=== PATIENT | male | born 1980 | race Caucasian/White ===

== ENCOUNTER 2019-01-06 08:06 | Day surgery (SDC) | payer OTHER, SELFPAY ==
--- NOTE | 2019-01-06 06:11 | PCM.HP.STD ---
Problem List (1) Personal history of colonic polyps Status: Acute History of Present Illness Date of Admission: 01/06/19 The patient is a 38 year old M who presents today for follow-up. He has a personal history of a tubular adenoma the colon identified 2009. He has a family history of colon cancer.. The September 2010 colonoscopy involved a rectal polypectomy of the tubular adenoma. The patient denies bright red blood per rectum or melena. No abdominal pain. No change of weight. His health otherwise has been stable. Upon further questioning him today he states that he did bleed from his previous polypectomy and required urgent treatment the following day. He states the following day is when he met me and I was able to assist him out of that problem. Past Medical History Allergies No Known Allergies Allergy (Verified 12/31/18 14:53) Home Medications: Ambulatory Orders Medication Instructions Recorded NK 12/31/18 Surgical History: no surgical history Smoking Status: Current every day smoker Review of Systems HEENT: Denies: Difficulty Swallowing Cardiovascular: Denies: Chest Pain Respiratory: Denies: Cough Gastrointestinal: Denies: Abdominal Pain, Melena Endocrine: Denies: Change in Body Habitus VTE Information - Inpt Only VTE Present on Admission: No - Physical Exam General: Alert, Oriented x3, Cooperative, No apparent distress Oral: Moist Mucosa Neck: Supple Lungs: Clear to auscultation Cardiovascular: Regular rate, Regular Rhythm Abdomen: Bowel Sounds Present, Soft, Non Tender, Non-Distended Extremities: No Calf Tenderness Psych/Mental Status: Normal Affect Assessment/Plan All Active Problems Personal history of colonic polyps (Acute) Based upon his personal history of colon polyps and family history of colon cancer he would be a candidate for surveillance colonoscopy every 5 years. I discussed with him technique, benefits, risks, alternatives. He has had an opportunity to ask and have questions answered. He presents via our open access program today. We will proceed as noted. Adin Bingham M.D., F.A.C.S.
[2019-01-06 08:28] VITALS: BP 150/105; PULSE 121; RESP 16; TEMP 36.9; O2SAT 100; BMI 24.9
--- NOTE | 2019-01-06 09:30 | COLBX_PTH ---
PATIENT: MIKAEL MEYERS LOC: EN U#:[id number] AGE/SX: 38/M ROOM: RE01/06/[address]: Dr. Adin Bingham MD : 1980 BED: DIS: 01/06/2019 SPEC #: [id number] RECD: 01/06/19 12:37 STATUS: ANDIE NEAL #: [id number] RAMYA: 01/06/19 09:[address]: Adin Bingham DEPT: SURGICAL PATHOLOGY RECD BY: Carlos Chua ENTERED: 01/06/19 12:37 SP TYPE: COLON BX OTHR DR: Dr. Matthew Campa MD Tissues: Sigmoid colon biopsy Procedures: Surgery Specimen Level IV HEADER OPERATION: Colonoscopy - open access (MAC) PRE-OP DIAGNOSIS: Personal history colon polyps TISSUE SUBMITTED: Polyp proximal sigmoid MICROSCOPIC DIAGNOSIS Proximal sigmoid polyp, biopsy: Tubular adenoma. Fragments of mucoid material. SJ:rachell 01/07/19 MICROSCOPIC DESCRIPTION Slides are reviewed. GROSS DESCRIPTION Received in fixative is one container labeled with the patient's name and designated polyp proximal sigmoid. The specimen consists of a piece of powers-pink polyp measuring 0.5 x 0.5 x 0.3 cm. Also present in the container are multiple fragments of powers soft tissue that in aggregate measure 0.5 x 0.5 x 0.1 cm. The entire specimen is submitted in one cassette. / SJ:rachell 01/06/19 TC:1 CPT: 82309
[2019-01-06 09:42] VITALS: BP 119/93; BP 150/105; PULSE 97; RESP 18; TEMP 36.6; O2SAT 98
--- NOTE | 2019-01-06 09:43 | OP.ENDO_ITS ---
01/06/2019 Matthew Campa MD Re : Colonoscopy procedure for Phil Abdul Dear Dr. Campa This procedure was performed on Sunday, January 06, 2019. My impressions and recommendations are as follows: Impressions : - One 9 mm polyp in the proximal sigmoid colon, removed with a hot snare. Resected and retrieved. Clip was placed. - Tortuous colon. - The examination was otherwise normal. Recommendations : - Discharge patient to home. - Resume previous diet. - Continue present medications. - Repeat colonoscopy in 5 years for surveillance. - Telephone my office for pathology results in 1 week. My findings are described in the full procedure note, which is enclosed. If I can be of further assistance, please feel free to contact me at Doctor phone number(s): Work: . Sincerely, Adin Bingham MD 01/06/2019 9:43:31 AM This report has been signed electronically.
[2019-01-06 09:45] VITALS: BP 113/93; BP 150/105; PULSE 91; RESP 18; O2SAT 98
[2019-01-06 09:50] VITALS: BP 114/83; BP 150/105; PULSE 87; RESP 18; O2SAT 100
[2019-01-06 09:55] VITALS: BP 123/90; BP 150/105; PULSE 83; RESP 18; TEMP 36.7; O2SAT 99
[2019-01-06 10:15] VITALS: BP 150/105
== END 2019-01-06 10:16 | disposition home or self-care (01) ==
LOC: EN 08:07 → AC 08:09
PROVIDERS: Family Provider Family Medicine; PCP Family Medicine; Referring Provider Surgery; Visit Provider Surgery
PROC: 0DJD8ZZ Inspection of Lower Intestinal Tract, Via Natural or Artificial Opening Endoscopic (ICD-10-PCS; CPT 45378; principal; 2019-01-06 09:25)
DX: D12.5 Benign neoplasm of sigmoid colon (principal); I10 Essential (primary) hypertension; F17.200 Nicotine dependence, unspecified, uncomplicated; Z80.0 Family history of malignant neoplasm of digestive organs
CPT/HCPCS: 45380; 88305; J7120

== ENCOUNTER 2023-11-14 10:17 | Emergency (ER) | payer BC, SELFPAY ==
[2023-11-14 10:17] VITALS: BP 141/86; PULSE 135; RESP 18; TEMP 35.8; O2SAT 100; BMI 26.5
--- NOTE | 2023-11-14 10:58 | CT_ITS ---
HISTORY: tail bone pain, concern for abscess. TECHNIQUE: Helically acquired images were obtained of the abdomen and pelvis after the intravenous administration of 100mL Isovue-300. A radiation dose optimization technique was used for this scan. 432 images. COMPARISON: None. FINDINGS: LOWER CHEST: Lung bases clear. BOWEL: Bowel nondilated. Appendectomy. No focal pericolonic inflammatory change observed. PERITONEUM: No significant ascites. LIVER: Fatty infiltration. GALLBLADDER/BILIARY TREE: Gallbladder present. SPLEEN/PANCREAS: Homogeneous and nonenlarged. KIDNEYS/ADRENAL GLANDS: Unremarkable. VESSELS: No abdominal aortic aneurysm. Very mild atherosclerosis. PELVIC ORGANS: Unremarkable. ABDOMINAL WALL: 2.5 x 2.8 cm rim-enhancing cystic lesion with surrounding stranding below the coccyx between the gluteal muscles. BONES: Degenerative endplate changes with osteophytes and intervertebral disc space narrowing of L5-S1. CT/Abdomen/Pelvis W IV Cont ONLY IMPRESSION: 2.8 cm pilonidal abscess. Hepatic steatosis. Electronically Signed: Aidee Padilla MD at 12:01 EST ,
--- NOTE | 2023-11-14 11:11 | EX.ED.DYSGE1 ---
HPI History of Present Illness Chief Complaint: Other, Pain/Inj Informant: patient Narrative Narrative: Patient is a 43-year-old male with history of sciatica (recently treated with a course of steroids and improved) presenting with worsening tailbone pain. States is been mild for the past month but flared up from time to time. Has had similar symptoms like this over the years however it has been significantly worse over the past 5 days. He states it is much worse when he sits. He does sit a lot at work either driving or just sitting. Patient of the pain, fever or chills. Notes it feels different than his sciatica. Denies any bowel or bladder incontinence. Denies any fever or chills. Did try Epson bath last night which gave some temporary relief. Denies any drainage to the area or skin changes that he is aware of. It is painful to touch directly. Denies any trauma. Denies any other complaints at this time. PFSH PFSH Home Medications atorvastatin 20 mg tablet 20 mg PO DAILY 11/14/23 [History Last Taken 11/13/23] ciprofloxacin HCl 500 mg tablet (Cipro) 500 mg PO BID #14 tabs 11/14/23 [Rx Last Taken Unknown] lisinopril 30 mg tablet 30 mg PO DAILY 11/14/23 [History Last Taken 11/13/23] metronidazole 500 mg tablet 500 mg PO Q8H 7 days #21 tabs 11/14/23 [Rx Last Taken Unknown] oxycodone-acetaminophen 5 mg-325 mg tablet (Percocet) 1 tab PO Q8H PRN pain 3 days #12 tabs 11/14/23 [Rx Last Taken Unknown] tadalafil 2.5 mg tablet 2.5 mg PO DAILY 11/14/23 [History Last Taken 11/13/23] Allergy/AdvReac Type Severity Reaction Status Date / Time No Known Allergies Allergy Verified 11/14/23 10:17 Social History Smoking Status: Current every day smoker tobacco type: cigarettes ROS ROS ED Constitutional Constitutional ED: Denies chills or fever(s) Respiratory/Chest Respiratory/Chest: Denies cough Gastrointestinal Gastrointestinal: Denies abdominal pain, constipation, diarrhea, nausea or vomiting Genitourinary Genitourinary ED: Denies dysuria or hematuria Musculoskeletal Musculoskeletal: Reports back pain; Denies arthralgias or myalgias Integumentary Denies rash Neurologic Neurologic: Denies headache(s) Psychiatric Psychiatric: Denies anxiety EXAM Physical Exam Const Vital Signs: 11/14/23 10:17 11/14/23 10:17 11/14/23 11:34 Temperature 96.5 F L Temperature Source Temporal Pulse Rate 135 H 100 Respiratory Rate 18 14 Respiratory Effort Normal Non-Labored Respiratory Pattern Normal Blood Pressure 141/86 H 127/75 H Blood Pressure Mean 104 92 Pulse Ox 100 95 Oxygen Delivery Method Room Air Room Air 11/14/23 13:34 Temperature Temperature Source Pulse Rate Respiratory Rate 18 Respiratory Effort Respiratory Pattern Blood Pressure Blood Pressure Mean Pulse Ox Oxygen Delivery Method Positive well nourished and well developed General Appearance ED: well developed and NAD HEENT Reports moist mucous membranes Neck supple Chest Wall inspection of chest normal Resp normal respiratory effort and clear to auscultation bilaterally Cardio regular rhythm Rate: tachycardic GI normal to inspection, nondistended, normoactive bowel sounds, non-tender and non-distended Back/Spine Back/Spine Narrative: No midline tenderness of thoracic and lumbar spine, normal range of motion of the spine. No significant paraspinal tenderness. Extremity normal to inspection Extremity Narrative: ? 5 strength with plantar dorsiflexion as well as flexion of the hips bilaterally. Does not reproduce the pain. Neuro oriented x3 Sensorium / Orientation: alert Motor Exam: strength 5/5 throughout; Negative for general weakness Psych mental status grossly normal Skin Skin Narrative: No rashes or lesions appreciated however patient has reproducible tenderness of the superior and right gluteal cleft with some questionable induration to the area. Do not appreciate any significant erythema or drainage. MDM MDM MDM Narrative Medical decision making narrative: Evaluated for 5 days of worsening buttocks pain. Concern for pilonidal cyst versus deep space infection as he is tachycardic upon arrival. No obvious well-defined abscess/fluctuance noted on physical exam. Will obtain CT of the pelvis to further evaluation as well as labs. Is given IV fluids and Toradol. Declined stronger pain medicine at this time. States when he is laying down the pain is not as severe. Patient is a leukocytosis of 15.4. CMP and lactate largely normal. Mildly elevated inflammatory markers (ESR and CRP). CT of the abdomen and pelvis shows a 2.8 cm pilonidal abscess as well as hepatic steatosis, however I am concerned this is a perianal abscess. Surgical consult obtained and patient is evaluated by Dr. Tavarez. Dose of IV Zosyn. Decision made to perform bedside I&D by surgery. Culture sent. Packing is placed by surgery and per surgical report, there is a significant mount of purulent drainage expressed. Patient tolerated this well. Per recommendation from general surgery will place patient on Cipro and Flagyl, patient will remove packing in 2 days and follow-up in the office in 1 week. Will be given a short course of opioid pain medication. Patient comfortable this plan of care. Given return precautions. He verbalizes agreement or stands plan. Discharged home in improved and stable condition. Patient did drive here so is not given any opioids at time of discharge. Lab Data Attestation: I reviewed the patient's lab results. Labs: Laboratory Results - last 24 hr 11/14/23 11:11 WBC 15.4 H RBC 4.60 Hgb 14.6 Hct 42.3 MCV 92.0 MCH 31.7 MCHC 34.5 RDW Std Deviation 42.0 RDW Coeff of [place] 12.6 Plt Count 237 MPV 9.1 Immature Gran % (Auto) 0.600 Neut % (Auto) 79.2 H Lymph % (Auto) 11.7 L [place] % (Auto) 7.9 Eos % (Auto) 0.2 Baso % (Auto) 0.4 Absolute Neuts (auto) 12.2 H Absolute Lymphs (auto) 1.80 Nucleated RBC % 0 ESR 40 H Sodium 133 L Potassium 3.9 Chloride 100 Carbon Dioxide 27.0 Anion Gap 6 BUN 10 Creatinine 0.91 Estim Creat Clear Calc 117.07 Est GFR (MDRD) Af Amer 116 Est GFR (MDRD) Non-Af 96 BUN/Creatinine Ratio 10.9 Glucose 111 H Lactic Acid 1.0 Calcium 9.2 C-React Prot Ext Range 16.10 H Radiography Diagnostic Testing: Clinical Impression(s) from Imaging Studies Abdomen/Pelvis CT 11/14/23 10:58 IMPRESSION: 2.8 cm pilonidal abscess. Hepatic steatosis. Electronically Signed: Aidee Padilla MD at 12:01 EST , Management Discussion w/another healthcare provider: Deputy Editor In Chief Discharge Plan Triage Chief Complaint: Other, Pain/Inj ED Provider: Cecily Rausch Dx/Rx/DC Orders Clinical Impression: Perianal abscess, Acute buttock pain, Leukocytosis Instructions: ED ABSCESS Maryanne-Anal IandD Prescriptions: New ciprofloxacin HCl [Cipro] 500 mg tablet 500 mg PO BID Qty: 14 0RF metronidazole 500 mg tablet 500 mg PO Q8H 7 Days Qty: 21 0RF oxycodone-acetaminophen [Percocet] 5-325 mg tablet 1 tab PO Q8H PRN (Reason: pain) 3 Days Qty: 12 0RF No Action tadalafil 2.5 mg tablet 2.5 mg PO DAILY lisinopril 30 mg tablet 30 mg PO DAILY atorvastatin 20 mg tablet 20 mg PO DAILY Primary Care Provider: Matthew Campa Referrals: Zane Eli MD [Med Staff - Active Staff] - 1 Week Matthew Campa MD [Primary Care Provider] - Activity Restrictions/Additional Instructions: Call general surgery office, Dr. Eli, later today or tomorrow to arrange for follow-up/wound check in 1 week. Take all antibiotics as prescribed. Please remove the packing in 48 hours as we discussed if it has not fallen out on its own. Disposition Disposition: Home, Self Care
[2023-11-14 11:23] LABS: Erythrocyte Sedimentation Rate 40 mm/hr (0-20)
[2023-11-14 11:25] LABS: Absolute Neutrophil Count 12.2 X10^3/uL (2.0-7.7); Basophil# 0.06 X10^3/uL; Basophil% 0.4 % (0-1); Eosinophil# 0.03 X10^3/uL; Eosinophils% 0.2 % (0-5); Hematocrit 42.3 % (40-54); Hemoglobin 14.6 g/dL (13.0-16.5); Lymphocyte % 11.7 % (19-41); Mean Corp Hgb Conc 34.5 g/dL (32-36); Mean Corpuscular Hgb 31.7 pg (27.0-32.0); Mean Platelet Vol. 9.1 fl (6.2-12.0); Monocyte# 1.22 X10^3/uL; Monocyte% 7.9 % (0-10); NRBC Flagged by Analyzer 0 % (0-5); Neutrophil % 79.2 % (47-70); Platelet Count 237 K/mm3 (150-450); RBC Distribution Width CV 12.6 % (11.6-14.6); White Blood Count 15.4 K/mm3 (4.4-11.0)
[2023-11-14 11:34] VITALS: BP 127/75; PULSE 100; RESP 14; O2SAT 95
--- OUTSIDE RECORDS SUMMARY | 2023-11-14 11:34 | XMS RPT_ITS | CCD ---
Author Name Unknown Address [address] [place] [address] Organization [facility] Care Team Providers Care Cloud Infrastructure Architect Name Role Phone Hudson Diaz MD Primary Care Provider HUDSON DIAZ Primary Care Unavailable LIZ RAY Referring Unavailable HUDSON DIAZ Primary Care Unavailable LIZ RAY Referring Unavailable LIZ RAY Attending Unavailable HUDSON DIAZ Primary Care Unavailable HUDSON DIAZ Primary Care Unavailable JENNA RANDOLPH Referring Unavailable LIZ RAY Referring Unavailable HUDSON DIAZ Primary Care Unavailable HUDSON DIAZ Primary Care Unavailable JENNA RANDOLPH Attending Unavailable LIZ RAY Referring Unavailable LIZ RAY Attending Unavailable HUDSON DIAZ Primary Care Unavailable Medications Current Medications Medication Drug Class(es) Dates Sig (Normalized) Sig (Original) busPIRone hydrochloride 15 mg oral tablet (3 sources) Start: 12-04-2021 End: 01-25-2023 take 0.5 tablet by mouth twice daily, then take 1 tablet by mouth twice daily busPIRone (BUSPAR) 15 mg tablet Indications: Anxiety, generalized Take 1/2 a tab by mouth twice a day for 2 weeks than one twice a day. 60 tablet 5 12/04/2021 01/25/2023 Discontinued Completed/Discontinued Medications Medication Drug Class(es) Dates Sig (Normalized) Sig (Original) atorvastatin 20 mg oral tablet (3 sources) HMG-CoA Reductase Inhibitor Start: 01-29-2023 End: 08-16-2023 take 1 tablet by mouth once daily at bedtime for hyperlipidemia atorvastatin (LIPITOR) 20 mg tablet Take 1 tablet by mouth daily at bedtime. For cholesterol. 30 tablet 5 01/29/2023 08/16/2023 Discontinued Problems Active Problems Problem Classification Problem Date Documented Da te Episodic/Chronic Anxiety disorders (9 sources) Generalized anxiety disorder; Translations: [Generalized anxiety disorder] Onset: 09-21-2015 09-21-2015 Chronic Disorders of lipid metabolism (9 sources) Mixed hyperlipidemia; Translations: [Mixed hyperlipidemia] Onset: 09-21-2015 09-21-2015 Chronic Essential hypertension (10 sources) Essential hypertension; Translations: [Essential (primary) hypertension] Onset: 12-05-2015 12-05-2015 Chronic Other gastrointestinal disorders (7 sources) Irritable bowel syndrome; Translations: [Irritable bowel syndrome without diarrhea] Onset: 05-18-2011 09-21-2015 Chronic Other lower respiratory disease (1 source) Snoring; Translations: [Snoring] Episodic Other male genital disorders (6 sources) Secondary erectile dysfunction; Translations: [Male erectile dysfunction, unspecified] Onset: 01-25-2023 Chronic Other male genital disorders (1 source) Male erectile dysfunction, unspecified; Translations: [ED (erectile dysfunction) of organic origin] Onset: 01-25-2023 Chronic Residual codes; unclassified (1 source) Hypersomnia; Translations: [Hypersomnia, unspecified] Chronic Residual codes; unclassified (1 source) Hypersomnia, unspecified; Translations: [Hypersomnia] Onset: 01-25-2023 Chronic Substance-related disorders (7 sources) Smoker; Translations: [Nicotine dependence, unspecified, uncomplicated] Onset: 07-22-2020 07-22-2020 Chronic Unclassified (1 source) Acute midline low back pain without sciatica; Translations: [Acute midline low back pain without sciatica] Onset: 10-25-2023 Past or Other Problems Problem Classification Problem Date Documented Da te Episodic/Chronic Diabetes mellitus without complication (9 sources) High hemoglobin A1c level; Translations: [Other abnormal glucose] Onset: 1 05-05-2021 Episodic Gastrointestinal hemorrhage (7 sources) Hemorrhage of rectum and anus; Translations: [Hemorrhage of anus and rectum] Onset: 7 10-31-2007 Episodic Other and unspecified benign neoplasm (7 sources) Benign neoplasm of colon; Translations: [Benign neoplasm of colon, unspecified] Onset: 7 09-21-2015 Episodic Other and unspecified benign neoplasm (7 sources) History of polyp of colon; Translations: [Personal history of colonic polyps] Onset: 0 09-21-2015 Episodic Other and unspecified benign neoplasm (7 sources) Benign neoplasm of rectum and anal canal; Translations: [Benign neoplasm of rectum] Onset: 0 09-21-2015 Episodic Other lower respiratory disease (1 source) Snoring; Translations: [Snoring] Onset: 3 Episodic Other nervous system disorders (7 sources) Knee reflex finding; Translations: [Abnormal reflex] Onset: 7 02-01-2017 Episodic Other screening for suspected conditions (not mental disorders or infectious disease) (10 sources) Other specified abnormal findings of blood chemistry; Translations: [Other abnormal blood chemistry] Onset: 1 04-12-2021 Episodic Other skin disorders (7 sources) Cystic acne; Translations: [Acne vulgaris] Onset: 0 07-22-2020 Episodic Residual codes; unclassified (7 sources) Family history of malignant neoplasm of gastrointestinal tract; Translations: [Family history of malignant neoplasm of digestive organs] Onset: 7 09-21-2015 Episodic Residual codes; unclassified (7 sources) Current drinker; Translations: [Other problems related to lifestyle] Onset: 1 12-04-2021 Episodic Results Test Name Value Interpretation Reference Range Facil ity Vital Signs Date Time Vital Sign Value Performing Clinician Jaya campos 01-25-2023 09:26-0400 Diastolic blood pressure 83 mm[Hg] Liz Ray PA-C Work Phone: [facility] 01-25-2023 09:26-0400 Heart rate 95 /min Liz Ray PA-C Work Phone: [facility] 01-25-2023 09:26-0400 Systolic blood pressure 116 mm[Hg] Liz Ray PA-C Work Phone: [facility] 01-25-2023 08:29-0400 Body height 187 cm Liz Ray PA-C Work Phone: [facility] 01-25-2023 08:29-0400 Body weight 95.25 kg Liz Ray PA-C Work Phone: [facility] 01-25-2023 08:29-0400 Respiratory rate 16 /min Liz Ray PA-C Work Phone: [facility] 01-25-2023 08:29-0400 SaO2% (BldA) [Mass fraction] 99 % Liz Ray PA-C Work Phone: [facility] Encounters Encounter Date Encounter Type Care Provider Facility Start: 10-25-2023 End: 10-26-2023 ambulatory LIZ RAY Facility:[facility] Start: 04-05-2023 End: 04-05-2023 ambulatory LIZ RAY Facility:[facility] Start: 02-22-2023 End: 02-22-2023 ambulatory HUDSON DIAZ Facility:[facility] Start: 02-22-2023 End: 02-22-2023 Subsequent hospital visit by physician [facility] Work Phone: Radiology Procedures Date Procedure Procedure Detail Performing Clinician Start: 02-22-2023 Us abdominal real ti me w/image limited Liz Ray PA-C Work Phone: Start: 01-25-2023 Lipid 1996 panel - S jack or Plasma [facility] 1 Work Phone: Start: 01-06-2019 Colonoscopy Hudson cody MD Work Phone: Plan of Treatment Date Care Activity Detail Author Start: 07-22-2030 Urine microalbumin profile [facility] Start: 01-26-2028 Lipid 1996 panel - S jack or Plasma Lipid Screening [facility] Start: 01-26-2028 LIPID SCREEN LIPID SCREEN [facility] Start: 12-04-2026 LIPID SCREEN LIPID SCREEN [facility] Start: 04-05-2024 Annual PCP Team Compressor Operator Portable sparkle Disease Visit Annual PCP Team Chronic Disease Visit [facility] Start: 01-26-2024 ANNUAL PCP TEAM ICE HANDLER SPARKLE DISEASE VISIT ANNUAL PCP TEAM CHRONIC DISEASE VISIT [facility] Start: 01-26-2024 COVID-19 VACCINE (#1) COVID-19 VACCI NE (#1) [facility] Immunizations Immunization Date Immunization Notes Care Provider Fa cility 07-22-2020 tetanus toxoid, redu pradeep diphtheria toxoid, and acellular pertussis vaccine, adsorbed Hudson Diaz MD Work Phone: [facility] 10-25-2016 influenza virus vaccine, unspecified formulation Us 1 Work Phone: [facility] 05-12-2006 diphtheria and tetan us toxoids, adsorbed for pediatric use Hudson Diaz MD Work Phone: [facility] Work Phone: Payers Date Payer Category Payer Unknown [employer] PPO OOS [id number] 2021-Present [phone] [address] [place] [address] PPO [id number] 2021 Unknown [employer] PPO OOS [id number] 2021-Present [phone] [address] [place] [address] PPO [id number] 2021 Unknown [id number] Social History Date Type Detail Facility Start: 09-21-2015 End: 12-04-2021 Tobacco smoking status GAIS Occasional tobacco smoker [facility] Work Phone: History of tobacco use Cigarette Smoker [facility] Work Phone: Start: 09-21-2015 End: 01-25-2023 Cigarettes smoked current (pack per day) - Reported 0.5 [facility] Work Phone: Start: 09-21-2015 End: 01-25-2023 Tobacco use and exposure Former smokeless tobacco user [facility] Work Phone: Start: 12-04-2021 End: 01-25-2023 Alcohol intake Current drinker of alcohol (finding) [facility] Start: 12-04-2021 End: 01-25-2023 Tobacco Comment 1/2-1 ppd [facility] Start: 1980 Sex Assigned At Not on file [facility] Start: 01-25-2023 Tobacco smoking stat us [facility] Smokes tobacco daily [facility] Work Phone: Start: 01-25-2023 Tobacco use panel [facility] Work Phone: Adult Depression Screening Assessment 0 [facility] Work Phone: Clinical Notes 02-01-2017 to 10-25-2023 Eloise Myrick RDMS - 02/22/2023 10:30 AM EDTTelephone Encounter - Lauryn Ponce LPN - 02/13/2023 10:56 AM EDTTelephone Encounter - Liz Ray PA-C - 01/29/2023 12:03 PM EDT Note Date & Type Note Facility 10-25-2023 Note HNO ID: [id number] Author: Jerri Patrick RT(R) Service: Radiology Author Type: Technologist Type: Progress Notes Filed: 10/25/2023 9:57 AM Note Text: Radiology Service Progress Note PATIENT NAME: Phil Abdul DATE OF SERVICE: October 25, 2023 TIME: 9:44 AM PATIENT IDENTITY VERIFICATION COMPLETED USING TWO (2) IDENTIFIERS: Name and Date of confirmed by patient verbally. FALL SCREENING: Has the patient had 2 falls in the last year or 1 fall with injury or currently using an Ambulatory Assistive Device (Walker, Cane, Wheelchair, Crutches, etc.)? No PATIENT GENDER DATA: Male PATIENT RELEVANT IMPLANT DATA REVIEWED: Yes RADIOLOGY DEPARTMENT: General X-ray: Exam(s) Completed: Spine X-Ray(s): Lumbar AP / LAT / L5-S1 PERIPHERAL IV DATA: Not applicable SIGNED BY: RT Shaji(R) October 25, 2023 9:44 AM [facility] 10-25-2023 Note HNO ID: [id number] Author: Jenna Randolph APRN.MATERIAL MOVER Service: ? Author Type: Nurse Practitioner Type: Progress Notes Filed: 10/25/2023 9:32 AM Note Text: Chief Complaint No chief complaint on file. HPI Phil Abdul is a 43 year old male who presents here today for Above Complaints.. Patient presents for routine follow up. Patient reports about 5 weeks ago he began having sciatic pain. Patient reports he is going to a chiropractor but this has not helped. Patient reports use of ibuprofen for 4 days but this did not help either. Past medical history, appointments, medications, allergies reviewed. 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 Bingham, repeat 5 yrs COLSC FLEXIBLE W/CONTROL BLEEDING ANY METHOD 11/03/07 COLSC FLX W/RMVL OF TUMOR POLYP LESION SNARE TQ 10/31/07 COLSC FLX W/RMVL OF TUMOR POLYP LESION SNARE TQ 09/22/10 LAPAROSCOPIC APPENDECTOMY 05-29-13 LAPAROSCOPY ENTEROLYSIS SEPARATE PROCEDURE 05-29-13 Family History FAMILY HISTORY Problem Relation Age of Onset Colon Cancer Father 39 Psychiatry Mother anxiety and depression Hypertension Mother Cervical Cancer Paternal Grandfather Patient Allergies ALLERGIES No Active Allergies Current Medications Current Outpatient Medications on File Prior to Visit Medication Sig atorvastatin (LIPITOR) 20 mg tablet Take 1 tablet by mouth daily at bedtime. For cholesterol. Tadalafil (CIALIS) 2.5 mg tab Take 1 tablet by mouth once daily. lisinopril (ZESTRIL) 30 mg tablet Take 1 tablet by mouth once daily. No current facility-administered medications on file prior to visit. Social History Social History Tobacco Use Smoking status: Every Day Packs/day: 1.00 Years: 8.00 Additional pack years: 0.00 Total pack years: 8.00 Types: Cigarettes Smokeless tobacco: Former Tobacco comments: 11/12- ppd Vaping Use Vaping Use: Never used Substance Use Topics Alcohol use: Yes Alcohol/week: 21.0 standard drinks of alcohol Types: 21 Cans of Beer (12oz) per week Drug use: No Review of Symptoms REVIEW OF SYSTEMS SEE HPI EXAM: BP 130/74 Pulse 106 Resp 14 Wt 91.6 kg (202 lb) BMI 26.20 kg/m? General Appearance: Well appearing, alert, in no acute distress, well-hydrated, well nourished.. Back:reflexes are 2+ and symmetric, no evidence of scoliosis, Limited flexion/extension of back, pain with flexion. Lungs: Lungs clear to auscultation. No wheezing, rhonchi, rales.. Heart: RRR without murmur, gallop, or rubs. No ectopy. Health Maintenance List BP Controlled (<130/80) Never done Influenza Vaccine(1) due on 07/12/2023 Colorectal Cancer Screening due on 01/06/2024 Hepatitis B Vaccine(1 of 3 - 3-dose series) due on 01/26/2024 Covid-19 Vaccine(1) due on 01/26/2024 Pneumococcal Vaccine(1 of 2 - PCV) due on 01/26/2024 Annual PCP Team Chronic Disease Visit due on 04/05/2024 Lipid Screening due on 01/26/2028 DTaP,Tdap,Td Vaccine(3 - Td or Tdap) due on 07/22/2030 Depression Assessment Completed Hepatitis C Screening Completed HPV Vaccine Aged Out HIV Screening Discontinued ASSESSMENT/PLAN: 1. Acute midline low back pain without sciatica - ICD9: 724.2, ICD10: M54.50 (primary diagnosis) - PREDNISONE 10 MG TABLET - XR LUMBAR GENERAL 3V AP/LAT/L5-S1 2. Essential hypertension - ICD9: 401.9, ICD10: I10 - Controlled - Continue current medications - Recommend home blood pressure monitoring, to bring results to next visit - Encouraged sodium restriction, DASH or Mediterranean diet - Recommend regular aerobic exercise - Discussed need for and benefit of weight loss. BMI 26.20 kg/(m2) 3. Mixed hyperlipidemia - ICD9: 272.2, ICD10: E78.2 - Control undetermined, due for labs - Continue current medications - Counseled on healthy diet and regular exercise - Discussed need for and benefit of weight loss. BMI 26.20 kg/(m2) 4. ED (erectile dysfunction) of organic origin - ICD9: 607.84, ICD10: N52.9 -Continue arnoldo Randolph APRN.[facility] 04-05-2023 Note HNO ID: [id number] Author: Liz Ray PA-C Service: ? Author Type: Physician Fireproof Door Maker Type: Progress Notes Filed: 04/05/2023 10:26 AM Note Text: Chief Complaint Patient presents with: Recheck HPI Phil Abdul is a 42 year old male who presents here today for recheck. Patient was seen apprx 2 months ago. We started celexa to see if would help with anxiety symptoms. He stopped this about 1 week ago. Did not feel like it was helping and at this point, not sure he wants to try any other medication or increase dose of celexa. We started daily cialis to help with ED which he has noted good benefit from. He elected to wait until 2023 to do the sleep study. Will let us know if needs reordered at that time. Patient has some cysts on his face that he would like removed. Past medical history, appointments, medications, allergies reviewed. 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 Bingham, repeat 5 yrs COLSC FLEXIBLE W/CONTROL BLEEDING ANY METHOD 11/03/07 COLSC FLX W/RMVL OF TUMOR POLYP LESION SNARE TQ 10/31/07 COLSC FLX W/RMVL OF TUMOR POLYP LESION SNARE TQ 09/22/10 LAPAROSCOPIC APPENDECTOMY 05-29-13 LAPAROSCOPY ENTEROLYSIS SEPARATE PROCEDURE 05-29-13 Family History FAMILY HISTORY Problem Relation Age of Onset Colon Cancer Father 39 Psychiatry Mother anxiety and depression Hypertension Mother Cervical Cancer Paternal Grandfather Patient Allergies ALLERGIES No Active Allergies Current Medications Current Outpatient Medications on File Prior to Visit Medication Sig Tadalafil (CIALIS) 2.5 mg tab Take 1 tablet by mouth once daily. atorvastatin (LIPITOR) 20 mg tablet Take 1 tablet by mouth daily at bedtime. For cholesterol. lisinopril (ZESTRIL) 30 mg tablet Take 1 tablet by mouth once daily. citalopram hydrobromide (CELEXA) 10 mg tablet Take 1 tablet by mouth once daily. No current facility-administered medications on file prior to visit. Social History Social History Tobacco Use Smoking status: Every Day Packs/day: 1.00 Years: 8.00 Pack years: 8.00 Types: Cigarettes Smokeless tobacco: Former Tobacco comments: 1/2-1 ppd Vaping Use Vaping Use: Never used Substance Use Topics Alcohol use: Yes Alcohol/week: 21.0 standard drinks Types: 21 Cans of Beer (12oz) per week Drug use: No Review of Symptoms REVIEW OF SYSTEMS GENERAL: No weight loss, malaise or fevers EXAM: BP 136/86 (BP Site: Left Arm, BP Position: Sitting, BP Cuff Size: Large Adult) Pulse 88 Temp 36.9 ?C (98.5 ?F) Resp 18 Wt 93 kg (205 lb) BMI 26.59 kg/m? General Appearance: Well appearing, alert, in no acute distress, well-hydrated, well nourished.. Health Maintenance List BP CONTROLLED (<130/80) Never done HEPATITIS B(1 of 3 - 3-dose series) due on 01/26/2024 COVID-19 VACCINE(1) due on 01/26/2024 PNEUMOCOCCAL(1 - PCV) due on 01/26/2024 INFLUENZA(Season Ended) due on 07/12/2023 COLORECTAL CANCER SCREENING due on 01/06/2024 ANNUAL PCP TEAM CHRONIC DISEASE VISIT due on 01/26/2024 LIPID SCREEN due on 01/26/2028 DTAP,TDAP,TD(3 - Td or Tdap) due on 07/22/2030 DEPRESSION ASSESSMENT Completed HEPATITIS C SCREENING Completed HIV SCREENING Discontinued Data reviewed ASSESSMENT/PLAN: 1. Essential hypertension - ICD9: 401.9, ICD10: I10 (primary diagnosis) - good control - Continue current medication(s) - Recommended regular aerobic exercise. - Recommend home blood pressure monitoring, to bring results in on next visit - Goal of BP <130/80 - COMP METABOLIC PANEL 2. Anxiety, generalized - ICD9: 300.02, ICD10: F41.1 Patient declines further tx/adjustment of medication currently. 3. ED (erectile dysfunction) of organic origin - ICD9: 607.84, ICD10: N52.9 Improved on cialis 2.5mg daily 4. Epidermal cyst of face - ICD9: 706.2, ICD10: L72.0 Set up with derm - CONSULT TO DERMATOLOGY 5. Mixed hyperlipidemia - ICD9: 272.2, ICD10: E78.2 Recheck at next visit - LIPID PANEL, NONFASTING - COMP METABOLIC PANEL 6. Elevated hemoglobin A1c - ICD9: 790.29, ICD10: R73.09 - HGB A1C Liz Ray PA-C [facility] 02-22-2023 Note HNO ID: [id number] Author: Eloise Myrick RDMS Service: ? Author Type: Developer Support Engineer Type: Progress Notes Filed: 02/22/2023 10:47 AM Note Text: Radiology Service Progress Note PATIENT NAME: Phil Abdul DATE OF SERVICE: February 22, 2023 TIME: 10:46 AM PATIENT IDENTITY VERIFICATION COMPLETED USING TWO (2) IDENTIFIERS: Name and Date of confirmed by patient verbally. FALL SCREENING: Has the patient had 2 falls in the last year or 1 fall with injury or currently using an Ambulatory Assistive Device (Walker, Cane, Wheelchair, Crutches, etc.)? No PATIENT GENDER DATA: Male PATIENT RELEVANT IMPLANT DATA REVIEWED: Not Applicable RADIOLOGY DEPARTMENT: Ultrasound PERIPHERAL IV DATA: Not applicable SIGNED BY: Eloise Myrick RDMS February 22, 2023 10:46 AM [facility] 02-22-2023 History of Presen t illness Narrative Radiology Service Progress Note PATIENT NAME: Phil Abdul DATE OF SERVICE: February 22, 2023 TIME: 10:46 AM PATIENT IDENTITY VERIFICATION COMPLETED USING TWO (2) IDENTIFIERS: Name and Date of confirmed by patient verbally. FALL SCREENING: Has the patient had 2 falls in the last year or 1 fall with injury or currently using an Ambulatory Assistive Device (Walker, Cane, Wheelchair, Crutches, etc.)? No PATIENT GENDER DATA: Male PATIENT RELEVANT IMPLANT DATA REVIEWED: Not Applicable RADIOLOGY DEPARTMENT: Ultrasound PERIPHERAL IV DATA: Not applicable SIGNED BY: Eloise Myrick RDMS February 22, 2023 10:46 AM documented in this encounter [facility] 02-13-2023 Miscellaneous Notes Received authorization approval fax from [facility] for pt's split night sleep study. Form states needs authorization from office. Referral placed in [facility] to obtain insurance authorization. Faxed back form to [facility] advising that referral has been placed. Lauryn Ponce LPN documented in this encounter [facility] 01-29-2023 Miscellaneous Notes The following approved medication requests have been transmitted electronically. Requested Prescriptions Signed Prescriptions Disp Refills atorvastatin (LIPITOR) 20 mg tablet 30 tablet 5 Sig: Take 1 tablet by mouth daily at bedtime. For cholesterol. Authorizing Provider: LIZ RAY PA-C Pt called and is notified of providers results and instructions. Pt voices understanding. Pt is willing to take Lipitor. He will call back in to schedule appointment. Asmita Brown RN LEFT MESSAGE FOR PATIENT TO CALL BACK /DAMION TYSON Let patient know that his cholesterol is getting worse. Also liver enzymes have increased again. I recommend that he consider starting a statin such as lipitor 20mg. Is he agreeable? We should also get a RUQ US to see if anything more is showing. I know he has a hx of fatty liver which can lead to cirrhosis. His testosterone level is normal. A1c is okay. Thanks. Liz Ray PA-C documented in this encounter [facility] 01-25-2023 Note HNO ID: [id number] Author: Leigha Nagel LPN Service: ? Author Type: ? Type: Progress Notes Filed: 01/25/2023 9:27 AM Note Text: Repeat BP Check: 137/92 P86 #1 116/86 P91 #2 124/78 P96 #3 110/80 P96 #4 118/93 P96 #5 110/76 P94 #6 Jackson BP Average: 116/83 Pulse: 95 Leigha Shona TYSON [facility] 01-25-2023 Note HNO ID: [id number] Author: Liz Ray PA-C Service: ? Author Type: Physician Fireproof Door Maker Type: Progress Notes Filed: 01/25/2023 9:27 AM Note Text: Chief Complaint Patient presents with: Yearly Exam HPI Phil Abdul is a 42 year old male who presents here today for physical. Patient with hx of HTN, hyperlipidemia, smoker, alcohol use, elevated a1c, anxiety and those as below. Patient does not check BP at home. Continues to have issues with anxiety. Stopped buspar because he didn't feel like it was help. Concerned with ED. Patient states he is not sleeping well at all. He knows he snores and he wakes up gasping at times. He reports he wakes up and doesn't feel rested at all. STOP BANG Questionnaire 1. Snoring Do you snore loudly (louder than talking or loud enough to be heard through closed doors)? YES 2. Tired Do you often feel tired, fatigued, or sleepy during daytime? YES 3. Observed Has anyone observed you stop breathing during your sleep? NO 4. Blood Pressure Do you have or are you being treated for high blood pressure? YES 5. BMI BMI more than 35 kg/m2? NO 6. Age Age over 50 yr old? NO 7. Neck circumference Neck circumference greater than 40 cm? NO 8. Gender Gender male? YES * Neck circumference is measured by staff High risk of ELEN: answering yes to three or more items Low risk of ELEN: answering yes to less than three items Last 3 Encounter BP Readings: Date: BP: 01/25/2023 128/88 12/04/2021 127/73[bp jackson recheck[ 05/05/2021 116/78[bp jackson average[ Past medical history, appointments, medications, allergies reviewed. Previous Medical History PAST MEDICAL HISTORY Diagnosis Date Anxiety, generalized 09/21/2015 Benign neoplasm of colon Benign neoplasm of rectum and anal canal Chronic depressive personality disorder Essential hypertension 12/05/2015 Family history of malignant neoplasm of gastrointestinal tract Hemorrhage of rectum and anus Mixed hyperlipidemia 09/21/2015 Personal history of colonic polyps Smoker 07/22/2020 Smoker 07/22/2020 Started age 19 up to 1 PPD Spastic colitis 05/18/2011 Well adult exam 07/22/2020 Last done: 07/22/2020 Previous Surgical History PAST SURGICAL HISTORY Procedure Laterality Date COLONOSCOPY 01/06/2019 Dr. Bingham, repeat 5 yrs COLSC FLEXIBLE W/CONTROL BLEEDING ANY METHOD 11/03/07 COLSC FLX W/RMVL OF TUMOR POLYP LESION SNARE TQ 10/31/07 COLSC FLX W/RMVL OF TUMOR POLYP LESION SNARE TQ 09/22/10 LAPAROSCOPIC APPENDECTOMY 05-29-13 LAPAROSCOPY ENTEROLYSIS SEPARATE PROCEDURE 05-29-13 Family History FAMILY HISTORY Problem Relation Age of Onset Colon Cancer Father 39 Psychiatry Mother anxiety and depression Hypertension Mother Cervical Cancer Paternal Grandfather Patient Allergies ALLERGIES No Active Allergies Current Medications Current Outpatient Medications on File Prior to Visit Medication Sig lisinopril (ZESTRIL,PRINIVIL) 30 mg tablet Take 1 tablet by mouth once daily. PARoxetine (PAXIL) 20 mg tablet Take 1 tablet by mouth once daily. (Patient not taking: Reported on 01/25/2023) busPIRone (BUSPAR) 15 mg tablet Take 1/2 a tab by mouth twice a day for 2 weeks than one twice a day. (Patient not taking: Reported on 01/25/2023) No current facility-administered medications on file prior to visit. Social History Social History Tobacco Use Smoking status: Every Day Packs/day: 0.50 Years: 8.00 Pack years: 4.00 Types: Cigarettes Smokeless tobacco: Former Tobacco comments: 1/2-1 ppd Vaping Use Vaping Use: Never used Substance Use Topics Alcohol use: Yes Alcohol/week: 21.0 standard drinks Types: 21 Cans of Beer (12oz) per week Drug use: No Review of Symptoms REVIEW OF SYSTEMS GENERAL: No weight loss, malaise or fevers HEENT: No changes in hearing or vision, no nose bleeds or other nasal problems NECK: Negative for lumps, goiter, pain and significant neck swelling RESPIRATORY: Negative for cough, hemoptysis, wheezing, COPD, dyspnea or shortness of breath CARDIOVASCULAR: Negative for chest pain, leg swelling, CHF or palpitations GI: Negative for abdominal discomfort, blood in stools or black stools, change in bowel habit, heart burn, nausea, vomiting : No history of dysuria, frequency or incontinence MUSCULOSKELETAL: Negative for joint pain or swelling, back pain or muscle pain SKIN: Negative for lesions, rash, and itching PSYCH: + anxiety. Negative for sleep disturbance, mood disorder and recent psychosocial stressors HEMATOLOGY/LYMPHOLOGY: Negative for prolonged bleeding, bruising easily or swollen nodes ENDOCRINE: Negative for cold or heat intolerance, polyuria, polydipsia and goiter NEURO: No history of headaches, syncope, paralysis, seizures or tremors EXAM: BP 128/88 (BP Site: Left Arm, BP Position: Sitting, BP Cuff Size: Large Adult) Pulse 96 Resp 16 Ht 187 cm (6' 1.62 ) Wt 95.3 kg (210 l (more content not included)... [facility] 01-25-2023 Miscellaneous Notes Order for sleep study faxed to [facility]. Included last OV notes, med list, insurance card & demographics. Faxed to [phone]. Leigha Nagel LPN documented in this encounter [facility] 01-25-2023 History of Presen t illness Narrative Repeat BP Check: 137/92 P86 #1 116/86 P91 #2 124/78 P96 #3 110/80 P96 #4 118/93 P96 #5 110/76 P94 #6 Jackson BP Average: 116/83 Pulse: 95 Leigha Shona TYSON Chief Complaint Patient presents with: Yearly Exam HPI Phil Abdul is a 42 year old male who presents here today for physical. Patient with hx of HTN, hyperlipidemia, smoker, alcohol use, elevated a1c, anxiety and those as below. Patient does not check BP at home. Continues to have issues with anxiety. Stopped buspar because he didn't feel like it was help. Concerned with ED. Patient states he is not sleeping well at all. He knows he snores and he wakes up gasping at times. He reports he wakes up and doesn't feel rested at all. STOP BANG Questionnaire 1. Snoring Do you snore loudly (louder than talking or loud enough to be heard through closed doors)? YES 2. Tired Do you often feel tired, fatigued, or sleepy during daytime? YES 3. Observed Has anyone observed you stop breathing during your sleep? NO 4. Blood Pressure Do you have or are you being treated for high blood pressure? YES 5. BMI BMI more than 35 kg/m2? NO 6. Age Age over 50 yr old? NO 7. Neck circumference Neck circumference greater than 40 cm? NO 8. Gender Gender male? YES * Neck circumference is measured by staff High risk of ELEN: answering yes to three or more items Low risk of ELEN: answering yes to less than three items Last 3 Encounter BP Readings: Date: BP: 01/25/2023 128/88 12/04/2021 127/73[bp jackson recheck[ 05/05/2021 116/78[bp jackson average[ Past medical history, appointments, medications, allergies reviewed. Previous Medical History PAST MEDICAL HISTORY Diagnosis Date Anxiety, generalized 09/21/2015 Benign neoplasm of colon Benign neoplasm of rectum and anal canal Chronic depressive personality disorder Essential hypertension 12/05/2015 Family history of malignant neoplasm of gastrointestinal tract Hemorrhage of rectum and anus Mixed hyperlipidemia 09/21/2015 Personal history of colonic polyps Smoker 07/22/2020 Smoker 07/22/2020 Started age 19 up to 1 PPD Spastic colitis 05/18/2011 Well adult exam 07/22/2020 Last done: 07/22/2020 Previous Surgical History PAST SURGICAL HISTORY Procedure Laterality Date COLONOSCOPY 01/06/2019 Dr. Bingham, repeat 5 yrs COLSC FLEXIBLE W/CONTROL BLEEDING ANY METHOD 11/03/07 COLSC FLX W/RMVL OF TUMOR POLYP LESION SNARE TQ 10/31/07 COLSC FLX W/RMVL OF TUMOR POLYP LESION SNARE TQ 09/22/10 LAPAROSCOPIC APPENDECTOMY 05-29-13 LAPAROSCOPY ENTEROLYSIS SEPARATE PROCEDURE 05-29-13 Family History FAMILY HISTORY Problem Relation Age of Onset Colon Cancer Father 39 Psychiatry Mother anxiety and depression Hypertension Mother Cervical Cancer Paternal Grandfather Patient Allergies ALLERGIES No Active Allergies Current Medications Current Outpatient Medications on File Prior to Visit Medication Sig lisinopril (ZESTRIL,PRINIVIL) 30 mg tablet Take 1 tablet by mouth once daily. PARoxetine (PAXIL) 20 mg tablet Take 1 tablet by mouth once daily. (Patient not taking: Reported on 01/25/2023) busPIRone (BUSPAR) 15 mg tablet Take 1/2 a tab by mouth twice a day for 2 weeks than one twice a day. (Patient not taking: Reported on 01/25/2023) No current facility-administered medications on file prior to visit. Social History Social History Tobacco Use Smoking status: Every Day Packs/day: 0.50 Years: 8.00 Pack years: 4.00 Types: Cigarettes Smokeless tobacco: Former Tobacco comments: 11/12- ppd Vaping Use Vaping Use: Never used Substance Use Topics Alcohol use: Yes Alcohol/week: 21.0 standard drinks Types: 21 Cans of Beer (12oz) per week Drug use: No Review of Symptoms REVIEW OF SYSTEMS GENERAL: No weight loss, malaise or fevers HEENT: No changes in hearing or vision, no nose bleeds or other nasal problems NECK: Negative for lumps, goiter, pain and significant neck swelling RESPIRATORY: Negative for cough, hemoptysis, wheezing, COPD, dyspnea or shortness of breath CARDIOVASCULAR: Negative for chest pain, leg swelling, CHF or palpitations GI: Negative for abdominal discomfort, blood in stools or black stools, change in bowel habit, heart burn, nausea, vomiting : No history of dysuria, frequency or incontinence MUSCULOSKELETAL: Negative for joint pain or swelling, back pain or muscle pain SKIN: Negative for lesions, rash, and itching PSYCH: + anxiety. Negative for sleep disturbance, mood disorder and recent psychosocial stressors HEMATOLOGY/LYMPHOLOGY: Negative for prolonged bleeding, bruising easily or swollen nodes ENDOCRINE: Negative for cold or heat intolerance, polyuria, polydipsia and goiter NEURO: No history of headaches, syncope, paralysis, seizures or tremors EXAM: BP 128/88 (BP Site: Left Arm, BP Position: Sitting, BP Cuff Size: Large Adult) Pulse 96 Resp 16 Ht 187 cm (6' 1.62 ) Wt 95.3 kg (210 lb) SpO2 99% BMI 27.24 kg/m BP 116/83 Pulse 95 Resp 16 Ht 187 cm (6' 1.62 ) Wt 95.3 kg (210 lb) SpO2 99% BMI 27.24 kg/m General Appearance: Well appearing, alert, in no acute distress, well-hydrated, well nourished.. Skin: Skin color, texture, turgor normal, no suspicious rashes or lesions on exposed skin. Head: Normocephalic, no masses, lesions, tenderness or abnormalities. Eyes: Anicteric sclera. Pupils are equally round and reactive to light. Extraocular movements are intact. . Ears: External ears normal, canals clear, TMs pearly plaza. Nose/Sinuses: Nares normal, septum midline, mucosa normal, no drainage or sinus tenderness. Neck: Supple, no adenopathy; thyroid symmetric, normal size, no bruits. Lungs: Lungs clear to auscultation. No wheezing, rhonchi, rales.. Heart: RRR without murmur, gallop, or rubs. No ectopy. Abdomen: Normal abdominal exam, Abdomen soft, non-tender. Bowel sounds normal. No masses, organomegaly. Extremities: No deformities, edema, skin discoloration, clubbing or cyanosis. Good capillary refill. .. Peripheral Pulses: Normal. Neurologic: Gait normal. Reflexes normal and symmetric. Sensation grossly intact.. Health Maintenance List HIV SCREENING Never done BP CONTROLLED (<130/80) Never done DEPRESSION ASSESSMENT Never done ANNUAL PCP TEAM CHRONIC DISEASE VISIT due on 12/04/2022 INFLUENZA(1) due on 05/10/2023 HEPATITIS B(1 of 3 - 3-dose series) due on 01/26/2024 COVID-19 VACCINE(1) due on 01/26/2024 PNEUMOCOCCAL(1 - PCV) due on 01/26/2024 COLORECTAL CANCER SCREENING due on 01/06/2024 LIPID SCREEN due on 12/04/2026 DTAP,TDAP,TD(3 - Td or Tdap) due on 07/22/2030 HEPATITIS C SCREENING Completed Data reviewed N/a ASSESSMENT/PLAN: 1. Well adult exam - ICD9: V70.0, ICD10: Z00.00 (primary diagnosis) - Counseled on healthy diet and regular exercise 2. Essential hypertension - ICD9: 401.9, ICD10: I10 - good control - Continue current medication(s) - Recommended regular aerobic exercise. - Recommend home blood pressure monitoring, to bring results in on next visit - Goal of BP <130/80 - LISINOPRIL 30 MG TABLET - COMP METABOLIC PANEL - URINALYSIS, WITH MICROSCOPIC 3. Mixed hyperlipidemia - ICD9: 272.2, ICD10: E78.2 - to be determined upon return of lab results - Encouraged following a low carbohydrate, healthy oil intake diet. - Continue current therapy. - LIPID PANEL, NONFASTING 4. Elevated hemoglobin A1c - ICD9: 790.29, ICD10: R73.09 Check: - HGB A1C - COMP METABOLIC PANEL 5. Anxiety, generalized - ICD9: 300.02, ICD10: F41.1 Will try celexa. Recheck in 2 months 6. ED (erectile dysfunction) of organic origin - ICD9: 607.84, ICD10: N52.9 Patient prefers a daily option. - TESTOSTERONE TOTAL 7. Hypersomnia - ICD9: 780.54, ICD10: G47.10 Will set up sleep study at [facility] 8. Snoring - ICD9: 786.09, ICD10: R06.83 As above Liz Ray PA-C documented in this encounter [facility] 12-24-2022 Miscellaneous Notes The following approved medication requests have been transmitted electronically. Requested Prescriptions Signed Prescriptions Disp Refills lisinopril (ZESTRIL,PRINIVIL) 30 mg tablet 30 tablet 0 Sig: Take 1 tablet by mouth once daily. Authorizing Provider: HUDSON DIAZ MD Patient has been identified by name and date of : Yes Requested Prescriptions Pending Prescriptions Disp Refills lisinopril (ZESTRIL,PRINIVIL) 30 mg tablet 90 tablet 3 Sig: Take 1 tablet by mouth once daily. RX INSTRUCTIONS: Patient aware RX will be sent to pharmacy. No need to notify patient. Maryann Mancilla MA Romeo: 11/2021 Patient contacted and scheduled. Last refill: 01/2022 Patient has been identified by name and date of : Yes Requested Prescriptions Pending Prescriptions Disp Refills lisinopril (ZESTRIL,PRINIVIL) 30 mg tablet 90 tablet 3 Sig: Take 1 tablet by mouth once daily. RX INSTRUCTIONS: Patient aware RX will be sent to pharmacy. No need to notify patient. Eliz Nino Pss documented in this encounter [facility] 02-27-2022 Miscellaneous Notes noted Pt called and states he took the new medication Paxil for 7 days and this was making him nauseated. He stopped for 4 days and then tried again and the same thing happen again. He has stopped the medication and will continue with the Buspar and Lisinopril. No call back needed. Amelia Nino LPN documented in this encounter [facility] documented as of this encounter (statuses as of 02/27/2022) [facility] History of Past illness Narrative* Problem Noted Date Resolved Date Right upper extremity numbness 02/01/2017 0 12/25/2019 Right hand pain 02/01/2017 12/25/2019 Right leg weakness 02/01/2017 12/25/2019 Right leg numbness 02/01/2017 12/25/2019 Right leg pain 02/01/2017 12/25/2019 documented as of this encounter (statuses as of 12/25/2022) [facility] History of Past illness Narrative* Problem Noted Date Resolved Date Right upper extremity numbness 02/01/2017 0 12/25/2019 Right hand pain 02/01/2017 12/25/2019 Right leg weakness 02/01/2017 12/25/2019 Right leg numbness 02/01/2017 12/25/2019 Right leg pain 02/01/2017 12/25/2019 documented as of this encounter (statuses as of 01/25/2023) [facility] History of Past illness Narrative* Problem Noted Date Resolved Date Right upper extremity numbness 02/01/2017 0 12/25/2019 Right hand pain 02/01/2017 12/25/2019 Right leg weakness 02/01/2017 12/25/2019 Right leg numbness 02/01/2017 12/25/2019 Right leg pain 02/01/2017 12/25/2019 documented as of this encounter (statuses as of 01/25/2023) [facility] History of Past illness Narrative* Problem Noted Date Resolved Date Right upper extremity numbness 02/01/2017 0 12/25/2019 Right hand pain 02/01/2017 12/25/2019 Right leg weakness 02/01/2017 12/25/2019 Right leg numbness 02/01/2017 12/25/2019 Right leg pain 02/01/2017 12/25/2019 documented as of this encounter (statuses as of 01/29/2023) [facility] History of Past illness Narrative* Problem Noted Date Resolved Date Right upper extremity numbness 02/01/2017 0 12/25/2019 Right hand pain 02/01/2017 12/25/2019 Right leg weakness 02/01/2017 12/25/2019 Right leg numbness 02/01/2017 12/25/2019 Right leg pain 02/01/2017 12/25/2019 documented as of this encounter (statuses as of 02/13/2023) [facility] History of Past illness Narrative* Problem Noted Date Diagnosed Date Resolved Date Right upper extremity numbness 02/01/2017 12/25/2019 Right hand pain 02/01/2017 12/25/2019 Right leg weakness 02/01/2017 0 Right leg numbness 02/01/2017 0 Right leg pain 02/01/2017 12/25/2019 documented as of this encounter (statuses as of 09/15/2023) [facility] Diagnosis Essential hypertension Unspecified essential hypertension [facility] Diagnosis Well adult exam- Primary Routine general medical examination at a health care facility Essential hypertension Unspecified essential hypertension Mixed hyperlipidemia Elevated hemoglobin A1c Other abnormal blood chemistry Anxiety, generalized Generalized anxiety disorder ED (erectile dysfunction) of organic origin Impotence of organic origin Hypersomnia Hypersomnia, unspecified Snoring Other dyspnea and respiratory abnormality [facility] Diagnosis Elevated LFTs- Primary Other abnormal blood chemistry [facility] Diagnosis Elevated LFTs Other abnormal blood chemistry documented in this encounter [facility] for referral (narrative)* Diagnostic Procedure Only (Routine) - Pending Review Specialty Diagnoses / Procedures Referred By Lizeth vila Referred To Contact US IMAGING Diagnoses Elevated LFTs Procedures US ABD RT UPPER QUADRANT US ABDOMINAL REAL TIME W/IMAGE LIMITED Liz Ray PA-C [id number] [place] [address] Us Imaging Referral ID Status Reason Start Date Expiration Date Visits Requested Visits Authorized [id number] Pending Review Auto-Generat ed Referral 01/28/2023 02/27/2024 1 1 [facility] for referral (narrative)* Diagnostic Procedure Only (Routine) - Closed Specialty Diagnoses / Procedures Referred By Lizeth vila Referred To Contact US IMAGING Diagnoses Elevated LFTs Procedures US ABD RT UPPER QUADRANT US ABDOMINAL REAL TIME W/IMAGE LIMITED Liz Ray PA-C [id number] [place] [address] [place] [address] Referral ID Status Reason Start Date Expiration Date V isits Requested Visits Authorized [id number] Closed Auto-Generate d Referral 01/28/2023 02/27/2024 1 1 [facility] for visit Narrative* Diagnostic Procedure Only (Routine) - Closed Specialty Diagnoses / Procedures Referred By Lizeth vila Referred To Contact US IMAGING Diagnoses Elevated LFTs Procedures US ABD RT UPPER QUADRANT US ABDOMINAL REAL TIME W/IMAGE LIMITED Liz Ray PA-C [id number] [place] [address] [place] [address] Referral ID Status Reason Start Date Expiration Date V isits Requested Visits Authorized [id number] Closed Auto-Generate d Referral 01/28/2023 02/27/2024 1 1 [facility] Summary Purpose Family History No Family History Records Found Advance Directives No Advanced Directives Records Found Additional Source Comments Source Comments (unrecognize d section and content) In the event this informatio n is protected by the Federal Confidentiality of Alcohol and Drug Abuse Patient Records regulations: The Federal rules restrict any use of the information to criminally investigate or prosecute any alcohol or drug abuse patient.[facility] the event this information is protected by the Federal Confidentiality of Alcohol and Drug Abuse Patient Records regulations: The Federal rules restrict any use of the information to criminally investigate or prosecute any alcohol or drug abuse patient.[facility] the event this information is protected by the Federal Confidentiality of Alcohol and Drug Abuse Patient Records regulations: The Federal rules restrict any use of the information to criminally investigate or prosecute any alcohol or drug abuse patient.[facility] the event this information is protected by the Federal Confidentiality of Alcohol and Drug Abuse Patient Records regulations: The Federal rules restrict any use of the information to criminally investigate or prosecute any alcohol or drug abuse patient.[facility] the event this information is protected by the Federal Confidentiality of Alcohol and Drug Abuse Patient Records regulations: The Federal rules restrict any use of the information to criminally investigate or prosecute any alcohol or drug abuse patient.[facility] the event this information is protected by the Federal Confidentiality of Alcohol and Drug Abuse Patient Records regulations: The Federal rules restrict any use of the information to criminally investigate or prosecute any alcohol or drug abuse patient.[facility] the event this information is protected by the Federal Confidentiality of Alcohol and Drug Abuse Patient Records regulations: The Federal rules restrict any use of the information to criminally investigate or prosecute any alcohol or drug abuse patient.[facility] Reason for Visit (unrecogniz ed section and content) Reason Comments Refill Request Reason Comments Yearly Exam Reason Comments Orders Sleep Study Reason Comments Results Reason Comments sleep study authorization approval Care Teams (unrecognized sec tion and content) Cloud Infrastructure Architect Relationship Specialty Start Date End Date Hudson Diaz MD [address] [place] [address] PCP - [facility] 09/21/15 Cloud Infrastructure Architect Relationship Specialty Start Date End Date Hudson Diaz MD [address] [place] [address] PCP - [facility] 09/21/15 Cloud Infrastructure Architect Relationship Specialty Start Date End Date Hudson Diaz MD [address] [place] [address] PCP - [facility] 09/21/15 Cloud Infrastructure Architect Relationship Specialty Start Date End Date Hudson Diaz MD [address] [place] [address] PCP - [facility] 09/21/15 Cloud Infrastructure Architect Relationship Specialty Start Date End Date Hudson Diaz MD [address] [place] [address] PCP - [facility] 09/21/15 Cloud Infrastructure Architect Relationship Specialty Start Date End Date Hudson Diaz MD [address] [place] [address] [facility] - [facility] 09/21/15 (unrecognized sect ion and content) No Status Records Found INFORMATION SOURCE (unrecogn ized section and content) FOR RECORDS PERTAINING TO PATIENTS WHO ARE OR HAVE BEEN ENROLLED IN A CHEMICAL DEPENDENCY/SUBSTANCEABUSE PROGRAM, SOME INFORMATION MAY BE OMITTED. This clinical summary was aggregated from multiple sources. Caution should be exercised in using it in the provision of clinical care. This summary normalizes information from multiple sources, and as a consequence, information in this document may materially change the coding, format and clinical context of patient data. In addition, data may be omitted in some cases. CLINICAL DECISIONS SHOULD BE BASED ON THE PRIMARY CLINICAL RECORDS. [facility]. provides no warranty or guarantee of the accuracy or completeness of information in this document.
[2023-11-14 11:36] LABS: Anion Gap 6 (5-15); BUN 10 mg/dL (7-18); BUN/Creat Ratio 10.9 RATIO (10-20); Calcium,Total 9.2 mg/dL (8.5-10.1); Chloride 100 mmol/L (98-107); Creatinine, Serum 0.91 mg/dL (0.70-1.30); EST Glomerular Filtration Rate 96 mL/min (>60); Est Glom Filt Rate - Afr Amer 116 mL/min (>60); Estimated Creatinine Clearance 117.07 ml/min; Glucose 111 mg/dL (74-106); Potassium 3.9 mmol/L (3.5-5.1); Sodium Level 133 mmol/L (136-145)
[2023-11-14] MEDS: Ketorolac 15 MG/ML Vial IV (12:17)
[2023-11-14] MEDS: Piperacil/Tazobactam 4.5 GM in 0.9% Normal Saline (100mL MB+) 100 ML IV (13:20)
[2023-11-14 13:34] VITALS: RESP 18
--- NOTE | 2023-11-14 13:57 | CON.PCM.SX_ITS ---
Assessment & Plan Assessment/Plan (1) Perianal abscess: PLAN: Patient has CT scan which shows perianal abscess. I felt the area that is quite deep. After consenting the patient for incision and drainage and discussing the risks of bleeding and infection I performed an incision and drainage at the bedside and drained the purulent material. Patient will be sent home on oral antibiotics and the wound was packed. He will follow-up with me in 1 week. He will be given pain medication and cultures were done. Zane Eli MD Pager: [facility] [address] [place] [address], [address] [place] [address] Office: HPI Consult Data Date of Consult: 11/14/23 HPI Narrative HPI Narrative: MIKAEL MEYERS, is a 43 M who presents with perianal pain. Patient says has been going on for 5 days. He denies fevers or chills. He denies any drainage. He has never had a history of this in the past. [facility] Home Medications atorvastatin 20 mg tablet 20 mg PO DAILY 11/14/23 [History Last Taken 11/13/23] lisinopril 30 mg tablet 30 mg PO DAILY 11/14/23 [History Last Taken 11/13/23] tadalafil 2.5 mg tablet 2.5 mg PO DAILY 11/14/23 [History Last Taken 11/13/23] Allergy/AdvReac Type Severity Reaction Status Date / Time No Known Allergies Allergy Verified 11/14/23 10:17 Social History Smoking Status: Current every day smoker tobacco type: cigarettes ROS Constitutional Constitutional: Denies anorexia, chills or fatigue Eyes Eyes: Denies blurry vision ENT HEENT: Denies abnormal hearing Cardiovascular Cardiovascular: Denies chest pain Respiratory/Chest Respiratory/Chest: Denies cough or dyspnea Gastrointestinal Gastrointestinal: Reports abdominal pain; Denies nausea or vomiting Physical Exam Const alert and oriented x3 HEENT normocephalic Eyes PERRL Lymph Lymphatic: no lymphadenopathy noted Resp normal respiratory effort Cardio Rate: regular rate Rhythm: regular rhythm GI normal to inspection, nondistended, normoactive bowel sounds GI Narrative: Perianal pain in the midline posterior to the anus Lab / Micro Data 11/14/23 11:11 11/14/23 11:11 Labs: Laboratory Results - last 24 hr 11/14/23 11:11: WBC 15.4 H, RBC 4.60, Hgb 14.6, Hct 42.3, MCV 92.0, MCH 31.7, MCHC 34.5, RDW Std Deviation 42.0, RDW Coeff of Dixon 12.6, Plt Count 237, MPV 9.1, Immature Gran % (Auto) 0.600, Neut % (Auto) 79.2 H, Lymph % (Auto) 11.7 L, Eagle % (Auto) 7.9, Eos % (Auto) 0.2, Baso % (Auto) 0.4, Absolute Neuts (auto) 12.2 H, Absolute Lymphs (auto) 1.80, Nucleated RBC % 0, ESR 40 H, Sodium 133 L, Potassium 3.9, Chloride 100, Carbon Dioxide 27.0, Anion Gap 6, BUN 10, Creatinine 0.91, Estim Creat Clear Calc 117.07, Est GFR (MDRD) Af Amer 116, Est GFR (MDRD) Non-Af 96, BUN/Creatinine Ratio 10.9, Glucose 111 H, Lactic Acid 1.0, Calcium 9.2, C-React Prot Ext Range 16.10 H Imagaing Radiology Impression Abdomen/Pelvis CT 11/14/23 10:58 IMPRESSION: 2.8 cm pilonidal abscess. Hepatic steatosis. Electronically Signed: Aidee Padilla MD at 12:01 EST ,
--- NOTE | 2023-11-14 14:01 | PCM.OPRPT ---
Report of Operation Date of Procedure: 11/14/23 Pre-Operative Diagnosis: Perianal abscess Post-Operative Diagnosis: Same Surgery/Procedure Performed:: Perianal abscess incision and drainage with packing Type of Anesthesia: Local Description of Procedure: The patient's area between his sacrum and his anus was prepped. Local anesthetic was injected. A small incision was made with a scalpel. Hemostats were used to deepen the incision to the abscess cavity. There is a lot of purulent material that was expressed that was foul-smelling. It was cultured. The area was irrigated and then packed with quarter inch iodoform gauze. Dressing was applied. Patient tolerated the procedure well.
[2023-11-14 14:50] VITALS: BP 110/86; PULSE 87; RESP 16; O2SAT 97
== END 2023-11-14 14:52 | disposition home or self-care (01) ==
PROVIDERS: Emergency Provider Emergency Medicine; PCP Family Medicine; Visit Provider Emergency Medicine
DX: K61.0 Anal abscess (principal); K76.0 Fatty (change of) liver, not elsewhere classified; F17.210 Nicotine dependence, cigarettes, uncomplicated; D72.829 Elevated white blood cell count, unspecified; Z79.899 Other long term (current) drug therapy
CPT/HCPCS: 10061; 74177; 80048; 83605; 85025; 85652; 86140; 87070; 87075; 87077; 87186; 87205; 96365; 96375; 99283; J7030; Q9967; A4216

== ENCOUNTER 2024-04-21 05:54 | Day surgery (SDC) | payer BC, SELFPAY ==
--- NOTE | 2024-04-21 | COLBX_PTH ---
PATIENT: MIKAEL MEYERS LOC: EN U#:[id number] AGE/SX: 43/M ROOM: RE04/21/[address]: Dr. Adin Bingham MD : 1980 BED: DIS: 04/21/2024 SPEC #: [id number] RECD: 04/21/24 12:56 STATUS: ANDIE GIMENEZHieu #: [id number] RAMYA: 04/21/24 00:[address]: Adin Bingham DEPT: SURGICAL PATHOLOGY RECD BY: Carlos Chua ENTERED: 04/21/24 12:57 SP TYPE: COLON BX OTHR DR: Dr. Matthew Campa MD Tissues: Transverse colon Procedures: Surgery Specimen Level IV HEADER OPERATION: Colonoscopy, polypectomy PRE-OP DIAGNOSIS: Personal history of colonic polyps TISSUE SUBMITTED: Mid transverse polyp MICROSCOPIC DIAGNOSIS Mid transverse polyp, polypectomy: Tubular adenoma. EMIGDIO/ 04/22/2024 MICROSCOPIC DESCRIPTION Slides are reviewed. GROSS DESCRIPTION Received in fixative is one container labeled with the patient's name and designated Mid transverse polyp. The specimen consists of one irregular fragment of light powers soft tissue that measures 0.4 x 0.3 x 0.2 cm. The specimen is totally submitted in one cassette. EMIGDIO/ 04/21/24 TC:1 CPT:99356
--- NOTE | 2024-04-21 06:20 | PCM.HP.BLA ---
History and Physical Date of Admission: 04/21/24 Visit Reasons: REPEAT COLONOSCOPY Chief Complaint: repeat colonoscopy Is patient in pain?: No Allergies No Known Allergies Allergy (Verified 03/06/24 14:41) Medications atorvastatin 20 mg tablet 20 mg PO DAILY 11/14/23 [History Confirmed 03/06/24] lisinopril 30 mg tablet 30 mg PO DAILY 11/14/23 [History Confirmed 03/06/24] [facility] Medical History Acute buttock pain Leukocytosis Perianal abscess Personal history of colonic polyps Surgical History History of drainage of abscess Social History (Updated 03/06/24 @ 14:39 by Argenis Villa) Smoking Status: Current every day smoker tobacco type: cigarettes alcohol intake: current substance use type: does not use HPI HPI HPI: 43-year-old gentleman presents to discuss a colonoscopy. Dr. Zane Eli is most recently assisted the patient with a consultation on November 14, 2023. The patient had perianal pain and subsequently on the same day under local had a perianal abscess incised and drained. The patient was seen back in the office on November 21, 2023 and already the incision was healed. I had previously assisted the patient on January 06, 2019 with a colonoscopy. I removed a 9 mm polyp from the proximal sigmoid colon. Pathology was a tubular adenoma and 5-year follow-up was recommended. 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 He is a approximate pack per day cigarette smoker. He denies abdominal pain. No bright red blood per rectum or melena ROS General General: No weight change, appetite, fatigue, colon cancer, breast cancer or weakness HEENT HEENT: No difficulty swallowing, eye injury, eye surgery, swollen glands or hoarseness Endo Endocrine: No thyroid disease, diabetes mellitus, thyroid cancer, Hair loss, heat intolerance or cold intolerance Skin Skin: No rash or changing moles Musc Musculoskeletal: No back problems, arthritis, rheumatoid arthritis, gout or joint pain Cardio Cardiovascular: No murmur, pacemaker, heart disease, atrial fibrillation, high blood pressure, heart attack, heart stent, palpitations, shortness of breat with exertion or chest pain Psych Psychiatric: No depression, anxiety or hearing voices Resp Respiratory: No shortness of breath, No sleep apnea, No cough, No COPD, No asthma, No emphysema and No wheezing Gastro Gastrointestinal: No abdominal pain, No nausea or vomiting, No diarrhea, No constipation, No blood in stool, No acid reflux, No hemorrhoids, No ulcers, No gallbladder problem and No black,tarry stools Jason Hematologic: No blood thinners, No blood disorders, No bleeding, No anemia and No blood clots Neuro Neurologic: No system reviewed and no additional complaints, except as documented, No as per HPI, No abnormal gait, No abnormal hearing, No abnormal movements, No abnormal speech, No behavioral changes, No burning sensations, No confusion, No convulsions, No disequilibrium, No dizziness, No localized weakness, No frequent falls, No headache(s), No lack of coordination, No loss of vision, No memory loss, No numbness, No other visual disturbances, No radicular pain, No restless legs, No sensory deficit, No syncope, No tingling, No tremor(s), No weakness and No other Exam Const General: cooperative, healthy appearing and comfortable [facility] Head: normal to inspection Eyes General: appearance normal, both eyes and all related structures Neck Neck: normal visual inspection Chest Other: Increased AP diameter Resp Effort & Inspection: normal respiratory effort Other: End expiratory wheeze noted bilaterally mild Cardio Rate: regular rate Rhythm: regular rhythm GI Inspection: normal to inspection Palpation: soft and no hepatosplenomegaly Auscultation: normal bowel sounds Musc Cervical Spine: normal cervical lordosis Skin General: no rashes or lesions noted Neuro General: patient alert, patient awake and patient oriented x3 Extrem General: no calf tenderness Psych Appearance: grossly normal Assessment and Plan Assessment and Plan (1) Personal history of colonic polyps: Status: Acute Plan: 43-year-old gentleman with a personal history of colon polyp at a previous colonoscopy December 2018 and a family history of colon cancer in his father. I propose for him a colonoscopy with possible biopsy or polypectomy as indicated. The patient is a long-term chronic tobacco smoker. I have taken the moment to encourage him to strongly consider cessation. I have invited him to work with his primary care physician to facilitate this. He has had an opportunity to ask and have questions answered. We will schedule procedure at his discretion. I appreciate the ongoing opportunity of assisting with the surgical care. Copy: Dr. Santana Bingham M.D., F.Prasad.S. I have examined the patient and the H&P has been reviewed. There are no clinical changes since date of exam. Adin Bingham M.D., F.A.C.S.
[2024-04-21 06:25] VITALS: BP 145/89; PULSE 72; RESP 16; TEMP 36.8; O2SAT 100; BMI 27.0
[2024-04-21] MEDS: Lactated Ringers 1,000 ML 15 ML IV (06:29)
--- NOTE | 2024-04-21 07:40 | OP.COLON_ITS ---
Patient Name: Phil Abdul Procedure Date: 04/21/2024 7:15 AM Date of : 1980 Age: 43 Procedure: Colonoscopy Indications: High risk colon cancer surveillance: Personal history of colonic polyps Providers: Adin Bingham MD Referring MD: Matthew Campa MD Medicines: See the Anesthesia note for documentation of the administered medications Patient Profile: Last Colonoscopy: December 2018. Complications: No immediate complications. Procedure: Pre-Anesthesia Assessment: - Prior to the procedure, a History and Physical was performed, and patient medications and allergies were reviewed. The patient's tolerance of previous anesthesia was also reviewed. The risks and benefits of the procedure and the sedation options and risks were discussed with the patient. All questions were answered, and informed consent was obtained. Prior Anticoagulants: The patient has taken no anticoagulant or antiplatelet agents. ASA Grade Assessment: II - A patient with mild systemic disease. After reviewing the risks and benefits, the patient was deemed in satisfactory condition to undergo the procedure. After I obtained informed consent, the scope was passed under direct vision. Throughout the procedure, the patient's blood pressure, pulse, and oxygen saturations were monitored continuously. The colonoscope was introduced through the anus and advanced to the cecum, identified by appendiceal orifice and ileocecal valve. The colonoscopy was performed without difficulty. The patient tolerated the procedure well. The quality of the bowel preparation was good. The ileocecal valve and the appendiceal orifice were photographed. Scope In: 7:20:15 AM Scope Withdrawal Time 0 hours 9 minutes 7 seconds Scope Out: 7:35:22 AM Total Procedure Duration Time 0 hours 15 minutes 7 seconds Findings: The digital rectal exam findings include non-thrombosed internal hemorrhoids and internal hemorrhoids (Grade I). Pertinent negatives include normal prostate (size, shape, and consistency). A 6 mm polyp was found in the mid transverse colon. The polyp was sessile. The polyp was removed with a hot snare. Resection and retrieval were complete. A few diverticula were found in the sigmoid colon. Impression: - Non-thrombosed internal hemorrhoids and internal hemorrhoids (Grade I) found on digital rectal exam. - One 6 mm polyp in the mid transverse colon, removed with a hot snare. Resected and retrieved. - Diverticulosis in the sigmoid colon. Recommendation: - Discharge patient to home. - Resume previous diet. - Continue present medications. - Repeat colonoscopy in 5 years for surveillance. - Telephone my office for pathology results in 1 week. Procedure Code(s): --- Professional --- 73429, Colonoscopy, flexible; with removal of tumor(s), polyp(s), or other lesion(s) by snare technique Diagnosis Code(s): --- Professional --- Z86.010, Personal history of colonic polyps K64.0, First degree hemorrhoids D12.3, Benign neoplasm of transverse colon (hepatic flexure or splenic flexure) K57.30, Diverticulosis of large intestine without perforation or abscess without bleeding CPT copyright 2021 [employer]. All rights reserved. The codes documented in this report are preliminary and upon steward/stewardess bath review may be revised to meet current compliance requirements. Adin Bingham MD 04/21/2024 7:40:26 AM This report has been signed electronically. Number of Addenda: 0 Note Initiated On: 04/21/2024 7:15 AM
--- NOTE | 2024-04-21 07:41 | OP.CCLET_ITS ---
04/21/2024 Matthew Campa MD Re : Colonoscopy procedure for Phil Abdul Dear Dr. Campa This procedure was performed on Sunday, April 21, 2024. My impressions and recommendations are as follows: Impressions : - Non-thrombosed internal hemorrhoids and internal hemorrhoids (Grade I) found on digital rectal exam. - One 6 mm polyp in the mid transverse colon, removed with a hot snare. Resected and retrieved. - Diverticulosis in the sigmoid colon. Recommendations : - Discharge patient to home. - Resume previous diet. - Continue present medications. - Repeat colonoscopy in 5 years for surveillance. - Telephone my office for pathology results in 1 week. My findings are described in the full procedure note, which is enclosed. If I can be of further assistance, please feel free to contact me at Doctor phone number(s): Work: . Sincerely, Adin Bingham MD 04/21/2024 7:40:26 AM This report has been signed electronically.
[2024-04-21 07:42] VITALS: BP 103/64; BP 145/89; PULSE 99; RESP 16; TEMP 36.3; O2SAT 98
[2024-04-21 07:45] VITALS: BP 103/64; BP 145/89; PULSE 95; RESP 16; O2SAT 98
[2024-04-21 07:50] VITALS: BP 115/72; BP 145/89; PULSE 85; RESP 16; O2SAT 96
[2024-04-21 07:55] VITALS: BP 110/72; BP 145/89; PULSE 85; RESP 16; TEMP 36.3; O2SAT 97
[2024-04-21 08:19] VITALS: BP 145/89
== END 2024-04-21 08:23 | disposition home or self-care (01) ==
LOC: EN 05:55 → AC 05:55
PROVIDERS: PCP Family Medicine; Referring Provider Family Medicine; Visit Provider Surgery
PROC: 0DJD8ZZ Inspection of Lower Intestinal Tract, Via Natural or Artificial Opening Endoscopic (ICD-10-PCS; CPT 45378; principal; 2024-04-21 06:55)
DX: Z12.11 Encounter for screening for malignant neoplasm of colon (principal); K57.30 Diverticulosis of large intestine without perforation or abscess without bleeding; F17.210 Nicotine dependence, cigarettes, uncomplicated; K64.0 First degree hemorrhoids; D12.3 Benign neoplasm of transverse colon; E78.00 Pure hypercholesterolemia, unspecified; I10 Essential (primary) hypertension; Z79.899 Other long term (current) drug therapy; Z86.010 Personal history of colon polyps
CPT/HCPCS: 45385; 88305; J7120; J2405